=== PATIENT | male | born 1970 | race Two or more races ===

== ENCOUNTER 2017-04-26 20:21 | Emergency (ER) | payer OTHER ==
[~2017-04-26] VITALS: Ht 182.9 cm; Wt 81.6 kg
[2017-04-26 20:32] VITALS: BP 129/82
[2017-04-26] MEDS ORDERED: TDAP [DIPH/PERTUSSIS/TET] 0.5 ML VIAL IM ONE ×2 (21:55→22:00)
== END 2017-04-26 22:09 | disposition home or self-care (01) ==
LOC: ER 20:24
DX: S92.422A Displaced fracture of distal phalanx of left great toe, initial encounter for closed fracture (principal); S90.112A Contusion of left great toe without damage to nail, initial encounter; F17.200 Nicotine dependence, unspecified, uncomplicated; W20.8XXA Other cause of strike by thrown, projected or falling object, initial encounter; Y93.89 Activity, other specified; Y92.89 Other specified places as the place of occurrence of the external cause; Y99.9 Unspecified external cause status
CPT/HCPCS: 73660-TC; 90715; A4606; A6402; Z7610